=== PATIENT | female | born 1955 | race Caucasian/White ===

== ENCOUNTER 2019-02-04 15:17 | Outpatient (CLI) | payer OTHER ==
--- NOTE | 2019-02-04 15:49 | RAD ---
XR Hip Rt 2-3 View INDICATION: Right hip pain COMPARISON: None FINDINGS: Bones: No acute osseous abnormality. Bone mineralization appears within normal limits. Hip joint: There is moderate degenerative arthrosis of the right hip. SI joints and symphysis pubis: There is mild degenerative change of the right SI joint. Intrapelvic contents: Visualized bowel gas pattern is within normal limits. Surrounding soft tissues: Radiographically normal. IMPRESSION: 1. No acute fracture or subluxation demonstrated.. Moderate right hip osteoarthrosis.
== END 2019-02-04 15:18 | disposition home or self-care (01) ==
LOC: MADRAD 15:17
PROVIDERS: ATTEND Physician Assistant
DX: M25.551 Pain in right hip (principal); M16.11 Unilateral primary osteoarthritis, right hip